=== PATIENT | female | born 2000 | race Caucasian/White ===

== ENCOUNTER 2025-04-10 12:03 | Emergency (ER) | payer BC, SELFPAY ==
[2025-04-10 12:05] VITALS: BP 144/80; PULSE 86; RESP 16; TEMP 36.9; O2SAT 99
[2025-04-10 12:41] LABS: Bilirubin Negative (Negative); Blood Moderate (Negative); Clarity Clear (Clear); Glucose Negative (Negative); Ketones Negative (Negative); Leukocyte Esterase Negative (Negative); Nitrite Negative (Negative); Urobilinogen 0.2 mg/dL (Up to 0.2)
--- NOTE | 2025-04-10 12:59 | ED.GENADUL_ITS ---
Discharge Plan Disposition Patient Disposition: Home Condition: Stable Discharge Details Clinical Impression: of unknown anatomic location, Vaginal bleeding affecting early Primary Care Provider: Kriss Montesinos ED Provider: Talia Ojeda Home Meds and New Rx's Prescriptions: No Action lisdexamfetamine [Vyvanse] 50 mg capsule 50 mg PO DAILY Discharge Instructions Instructions: Bleeding in Early (DC) Additional Instructions: You were seen in the emergency department today for evaluation of bleeding in early . In our department you do full physical examination performed, you had a bedside ultrasound that was not able to visualize the in your uterus. You need to come back to the hospital tomorrow or Friday to have an ultrasound performed to identify if there is an ectopic , which is a that implants outside of your uterus. You had a hormone level today of 81, this is quite low for your expected 5 weeks, and needs to be rechecked on Friday (48 hours) and this can be done in the women's wellness clinic. Reasons to go back to the emergency department include heavy vaginal bleeding that soaks through a pad per hour for more than 2 hours in a row, sudden or severe worsening of your abdominal pain, fever or chills, or any other symptoms that cause you concern. Thank you for allowing us to be part of your care. Referrals: Sarai Barr MD [ [facility] STAFF PHYSICIAN] - 2 days Discharge Orders Other Ambulatory Orders: US pelvis & transvaginal (Routine) Timeframe: 2 Days Facility: [facility] - Location: DIAGNOSTIC IMAGING Ordered By: Talia Ojeda [facility] General Mode of arrival: ambulatory . Date/Time Provider Initiated Documentation: 04/10/25 12:20 . Limitations to Documentation: no limitations . Information obtained by: patient, family and old records reviewed . HPI Narrative: This is a 24-year-old female patient, G1, P0 at an estimated 5 weeks gestation, last menstrual period 03/04, presenting for evaluation of vaginal spotting and a positive home test. The patient reports that she tested at home Friday and Friday, both were positive. She has had a visit with the community clinic, had laboratory studies drawn but has not yet had the results of those studies given to her. On Friday she developed some vaginal spotting, sometimes brown, sometimes light pink, has not needed to wear a pad or panty ninoska er, notices this most on the toilet tissue after she goes to the bathroom. She is experiencing mild lower abdominal cramping. She has not had any dysuria or hematuria, diarrhea, has not had any ultrasounds performed during this . Related Data Home Medications ?Medication ?Instructions ?Recorded ?Confirmed lisdexamfetamine 50 mg capsule 50 mg PO DAILY 04/10/25 04/10/25 (Vyvanse) Allergies Allergy/AdvReac Type Severity Reaction Status Date / Time No Known Allergies Allergy Verified 04/10/25 12:08 General Stated Complaint: [employer] RICK: 3 Exam Narrative Exam Narrative: Gen: Awake and alert, in no apparent distress HEENT: Non-icteric sclera Neck: Supple Lungs: No apparent respiratory distress, normal respiratory effort. CV: Appears well perfused Abdomen: Non-distended, soft, nontender, no rigidity, rebound, or guarding MSK: Moves 4 extremities without apparent limitation in ROM Skin: Visualized skin without rashes, cyanosis. Neuro: Normal Gait, no obvious focal deficits or facial asymmetry. Speaks in full, clear sentences. Psych: Appropriate for situation. Course Vital Signs Vital signs: Vital Signs Temperature 36.9 C 04/10/25 12:05 Pulse 86 04/10/25 12:05 Respiratory Rate 16 04/10/25 12:05 Blood Pressure 144/80 H 04/10/25 12:05 Pulse Oximetry 99 04/10/25 12:05 Temperature 36.9 C 04/10/25 12:05 Temperature Source Oral 04/10/25 12:05 Pulse 86 04/10/25 12:05 Respiratory Rate 16 04/10/25 12:05 Blood Pressure 144/80 H 04/10/25 12:05 Blood Pressure Position Sitting 04/10/25 12:05 Pulse Oximetry 99 04/10/25 12:05 Oxygen Delivery Method Room Air 04/10/25 12:05 Oxygen Flow Rate 0 04/10/25 12:05 Pain Level 3 04/10/25 12:05 Lab/Test Results Lab/Test Results: Laboratory Tests Range/Units 04/10/25 04/10/25 12:21 12:26 Urine Color (Yellow) Yellow Urine Clarity (Clear) Clear Urine pH (5-8) 6.0 Ur Specific [place] (1.005-1.025) 1.010 Urine Protein (Neg-Trace) mg/dL Negative Urine Ketones (Negative) mg/dL Negative Urine Blood (Negative) Moderate H Urine Nitrite (Negative) Negative Urine Bilirubin (Negative) Negative Urine Urobilinogen (Up to 0.2) mg/dL 0.2 Ur Leukocyte Esterase (Negative) Negative Urine Glucose (Negative) mg/dL Negative ABO/Rh Cancelled Antibody Screen Cancelled POC- Test(urine) Positive Medical Decision Making This is a 24-year-old female patient presenting for evaluation of vaginal bleeding in early . My differential includes but is not limited to early implantation bleeding, miscarriage including complete, inevitable, incomplete, less likely septic in this patient without fever or hemodynamic instability. Considered subchorionic hemorrhage, ectopic , coagulopathy, anemia. I performed a bedside ultrasound as noted below, and do not identify any intrauterine . No pelvic free fluid noted, we will obtain laboratory studies to include CBC, CMP, magnesium, and beta quant. I will obtain a urinalysis. - Unfortunately, CBC was not obtained, but given the scant amount of bleeding, her lack of anemia symptoms such as conjunctival pallor, shortness of breath, etc., I do not feel that she requires repeat stick to obtain this lab. Urinalysis shows moderate blood, no evidence for infectious findings such as nitrates or leukocyte esterase, few bacteria noted, asymptomatic bacteriuria in the setting of was certainly considered, but the patient's sample had many epithelial cells and is likely contaminated. She will need a repeat clean- catch sample it with her outpatient providers, or sooner if she develops symptoms. Chemistry panel without electrolyte derangements, evidence of kidney or liver dysfunction, beta quant 81, which is below the level that I would anticipate for a of 5 weeks gestation. I shared these findings with the patient, counseling her on potential etiologies of her symptoms, including ectopic , loss, and potentially less likely an early developing typically. I reached out to [employer] who will ensure that she can be followed up with at women's wellness clinic on Friday for 48-hour beta quant, and put an order in for an ultrasound for identification of of unknown location. At this time, the patient has had a full medical evaluation and is safe for discharge to home. They are hemodynamically stable, ambulatory, and tolerating PO. They are understanding of the follow-up plan and return precautions. They left our facility without incident. Talia Ojeda MD Quality:SDOH Health Related Social Needs: No Data to Display PFSH All Active Problems (Updated 04/10/25 @ 13:42 by Talia Ojeda MD) Vaginal bleeding affecting early (Acute) of unknown anatomic location (Acute) Social History Smoking/Tobacco Use Status: Current every day Tobacco Type: e-cigarettes Smoking risk assessment performed?: Yes Alcohol Intake: never Drug use: Never Substance use type: does not use Details: Pt states she vapes - is trying to quit 04/10/25 Do you feel safe at home: Yes Do you feel safe in your relationship?: Yes POCUS Exam (ED) Limited OB Exam DATE OF EXAM:: 04/10/25 TIME OF EXAM:: 12:15 PROVIDER THAT PERFORMED THE STUDY: Talia Ojeda IS THIS A REPEAT EXAM DURING THIS ENCOUNTER: No Type of Exam: Pelvic OB Trans Abdominal REASON FOR EXAM: Vaginal Bleeding VISUALIZED STRUCTURES: Uterus PERTINENT FINDINGS/IMPRESSION: No apparent IUP; No free fluid Exam Complete.
[2025-04-10 13:03] LABS: Bacteria Few HPF (Negative); C & S Indicated? No; Casts Negative LPF (Negative); Crystals Negative HPF (Negative); Epithelial Cells Many HPF (Negative); Mucus Negative (Negative); WBC 0-2 HPF (0-5)
[2025-04-10 13:28] LABS: ALT 12 U/L (14-59); AST 11 U/L (15-37); Albumin 4.1 g/dL (3.4-5.0); Alkaline Phosphatase 53 U/L (46-116); Anion Gap 7.1 mmol/L (3-11); BUN 13 mg/dL (7-18); Bilirubin, Total 0.5 mg/dL (0.2-1.0); CO2 26.9 mmol/L (21.0-32.0); CREATININE 0.6 mg/dL (0.55-1.02); Calcium 8.8 mg/dL (8.5-10.1); Chloride 104 mmol/L (98-107); Estimated GFR 130.07 (mL/min/1.73m2); Glucose 92 mg/dL (74-106); HCG Quant, Pregnancy 81 mIU/mL (1-3); Magnesium 1.9 mg/dL (1.8-2.4); Potassium 3.8 mmol/L (3.5-5.1); Sodium 138 mmol/L (136-145); Total Protein 6.8 g/dL (6.4-8.2)
[2025-04-10 14:02] VITALS: BP 139/73; PULSE 82; RESP 16; O2SAT 99
== END 2025-04-10 14:04 | disposition home or self-care (01) ==
PROVIDERS: Emergency Provider Emergency Medicine; PCP Acupuncturist
DX: O36.80X0 Pregnancy with inconclusive fetal viability, not applicable or unspecified (principal); O20.9 Hemorrhage in early pregnancy, unspecified
CPT/HCPCS: 99284; 99283; 81025; 76815; 80053; 86850; 86900; 86901; 81003; 81015; 83735; 84702; 85025

== ENCOUNTER 2025-04-12 02:14 | Outpatient (CLI) | payer BC, SELFPAY ==
[2025-04-12 15:07] LABS: HCG Quant, Pregnancy 95 mIU/mL (1-3)
== END 2025-04-12 02:15 | disposition home or self-care (01) ==
PROVIDERS: PCP Acupuncturist; Visit Provider Obstetrics & Gynecology
DX: O36.80X0 Pregnancy with inconclusive fetal viability, not applicable or unspecified (principal)
CPT/HCPCS: 36415; 84702

== ENCOUNTER 2025-04-14 03:30 | Outpatient (CLI) | payer BC, SELFPAY ==
[2025-04-14 13:53] LABS: HCT 39.8 % (36.0-46.0); HGB 13.6 g/dL (11.2-15.7); MCH 28.5 pg (27.0-33.0); MCHC 34.2 % (32.0-36.0); MCV 83 fL (80-95); MPV 10.3 fL (8.0-11.0); Platelet Count 188 10^3/uL (130-400); RBC 4.78 10^6/uL (3.93-5.22); RDW-SD 36.5 fL; WBC 3.88 10^3/uL (4.4-10.8)
[2025-04-14 14:21] LABS: ALT 14 U/L (14-59); AST 16 U/L (15-37); Albumin 4.1 g/dL (3.4-5.0); Alkaline Phosphatase 51 U/L (46-116); Anion Gap 5.1 mmol/L (3-11); BUN 12 mg/dL (7-18); Bilirubin, Total 0.5 mg/dL (0.2-1.0); CO2 28.9 mmol/L (21.0-32.0); CREATININE 0.8 mg/dL (0.55-1.02); Calcium 8.8 mg/dL (8.5-10.1); Chloride 104 mmol/L (98-107); Estimated GFR 106.77 (mL/min/1.73m2); Glucose 84 mg/dL (74-106); HCG Quant, Pregnancy 101 mIU/mL (1-3); Potassium 3.4 mmol/L (3.5-5.1); Sodium 138 mmol/L (136-145); Total Protein 6.8 g/dL (6.4-8.2)
== END 2025-04-14 03:31 | disposition home or self-care (01) ==
LOC: LBO 03:30
PROVIDERS: PCP Acupuncturist; Visit Provider Obstetrics & Gynecology
DX: O26.851 Spotting complicating pregnancy, first trimester (principal); O36.80X0 Pregnancy with inconclusive fetal viability, not applicable or unspecified
CPT/HCPCS: 36415; 80053; 85027; 84702

== ENCOUNTER 2025-04-17 08:02 | Outpatient (CLI) | payer BC, SELFPAY ==
[2025-04-17 11:00] LABS: HCG Quant, Pregnancy 25 mIU/mL (1-3)
== END 2025-04-17 08:03 | disposition home or self-care (01) ==
PROVIDERS: Obstetrics & Gynecology; PCP Acupuncturist; Visit Provider Advanced Practice Midwife
DX: O36.80X0 Pregnancy with inconclusive fetal viability, not applicable or unspecified (principal)
CPT/HCPCS: 84702

== ENCOUNTER 2025-10-05 16:17 | Outpatient (CLI) | payer BC, SELFPAY ==
[2025-10-05 19:48] LABS: HCG Quant, Pregnancy 10 mIU/mL (1.5-4.2)
== END 2025-10-05 16:18 | disposition home or self-care (01) ==
LOC: LBO 16:17
PROVIDERS: PCP Acupuncturist; Visit Provider Obstetrics & Gynecology
DX: Z87.59 Personal history of other complications of pregnancy, childbirth and the puerperium (principal)
CPT/HCPCS: 36415; 84702

== ENCOUNTER 2025-10-07 02:22 | Outpatient (CLI) | payer BC, SELFPAY ==
[2025-10-07 08:21] LABS: HCG Quant, Pregnancy 4 mIU/mL (1.5-4.2)
== END 2025-10-07 02:23 | disposition home or self-care (01) ==
LOC: LBO 02:22
PROVIDERS: PCP Acupuncturist; Visit Provider Obstetrics & Gynecology
DX: Z87.59 Personal history of other complications of pregnancy, childbirth and the puerperium (principal); Z32.01 Encounter for pregnancy test, result positive
CPT/HCPCS: 36415; 84702